=== PATIENT | male | born 1995 | race Caucasian/White ===

== ENCOUNTER 2021-03-02 06:04 | Day surgery (SDC) | payer OTHER ==
[~2021-03-02] VITALS: Ht 167.6 cm; Wt 72.5 kg
[2021-03-02] MEDS ORDERED: ceFAZolin SOD 2 GM in IV 1 EA IV ONE (07:00)
[2021-03-02] MEDS ORDERED: LR 1,000 ML IV ONE (07:00)
[2021-03-02] MEDS ORDERED: fentaNYL 100 MCG/2 ML INJECTION (J3010) As Ordered ONE (07:20)
[2021-03-02] MEDS ORDERED: propofoL 200 MG/20 ML VIAL As Ordered ONE ×2 (07:20→08:12)
[2021-03-02] MEDS ORDERED: dexameTHASONE 4 MG/ML 1ML VIAL (J1100 PER 1MG) As Ordered ONE (07:20)
[2021-03-02] MEDS ORDERED: LIDOCAINE 2% 100MG/5ML SDV (FOR ANES.) As Ordered ONE (07:20)
[2021-03-02] MEDS ORDERED: MIDAZOLAM INJ 2MG/2ML VIAL (J2250 PER 1MG) As Ordered ONE (07:20)
[2021-03-02] MEDS ORDERED: LIDOCAINE 2% JELLY 5ML TUBE As Ordered ONE (07:33)
[2021-03-02] MEDS ORDERED: LIDOCAINE 1% SDV 30ML VIAL As Ordered ONE (08:05)
[2021-03-02] MEDS ORDERED: BACITRACIN OINTMENT 30GM TUBE As Ordered ONE (08:05)
[2021-03-02] MEDS ORDERED: BUPIVACAINE HCL 0.25% 30ML VIAL As Ordered ONE (08:05)
[2021-03-02] MEDS ORDERED: ACETAMINOPHEN 1000MG 100ML IV BTL (OFIRMEV) (J0131 PER 10MG) As Ordered ONE (08:06)
[2021-03-02] MEDS ORDERED: HYDROmorphone HCL 2 MG/ML 1ML VIAL (J1170) As Ordered ONE (08:09)
[2021-03-02] MEDS ORDERED: LACRILUBE (AKWA TEARS) OPHTH OINT 3.5 GM As Ordered ONE (08:52)
[2021-03-02] MEDS ORDERED: ONDANSETRON 4MG/2ML VIAL As Ordered ONE (08:55)
[2021-03-02] MEDS ORDERED: OXYC1TAB23 PO (09:14)
--- NOTE | 2021-03-02 09:23 | ROOPDOC ---
[facility] Report Of Operation Report of Operation DATE OF PROCEDURE: 03/02/21 PREOPERATIVE DIAGNOSIS: Phimosis. POSTOPERATIVE DIAGNOSIS: Phimosis. PROCEDURE: Circumcision. SURGEON: Casi Vanegas MD ASSOCIATE RELATIONS SPECIALIST: None. ANESTHESIA: General. OPERATIVE INDICATIONS: This is a 25-year-old male with phimosis who was brought to the operating room today for treatment. DESCRIPTION OF PROCEDURE: The patient was brought to the operating room and general anesthesia was induced. Prophylactic antibiotics were infused. He has then placed in the supine position and prepped and draped in the usual sterile fashion. At this point, circumcising incisions were made at the level of the coronal sulcus with the foreskin retracted over the glans and then also with foreskin retracted down off the glans. All the foreskin in between the two incisions was then removed using electrocautery. Once the foreskin was removed, any areas of bleeding were controlled with electrocautery. When satisfied with hemostasis, the skin of the penile shaft was then re-approximated to the glans with interrupted 3-0 chromic sutures. Once that was done, dressings were applied including a Mason and Coban and then this was marked the conclusion of the procedure. The patient was then awakened from anesthesia and transferred to the recovery room in stable condition. Estimated blood loss: 20 ml. Complications: None. Specimens: Foreskin. PLAN: The patient will keep his dressings on and remove them in two days. He will follow up in urology clinic in 2 to 3 weeks for a postoperative visit. CASI VANEGAS MD Mar 02, 2021 09:23
[2021-03-02] MEDS ORDERED: MEPERIDINE INJ 25 MG/ML VIAL (J2175) IV PRN (09:25)
[2021-03-02] MEDS ORDERED: fentaNYL 100 MCG/2 ML INJECTION (J3010) IV PRN (09:25)
[2021-03-02] MEDS ORDERED: ONDANSETRON 4MG/2ML VIAL IV PRN (09:25)
[2021-03-02] MEDS ORDERED: METOCLOPRAMIDE INJ 10MG/2ML VIAL (J2765 PER 1) IV PRN (09:25)
[2021-03-02] MEDS ORDERED: LR 1,000 ML IV SCH (09:25)
[2021-03-02] MEDS ORDERED: PERCOCET 5MG/325MG TAB PO PRN (09:30)
[2021-03-02] MEDS: oxyCODONE 5MG TAB PO PRN ×2 (09:32→09:58)
[2021-03-02 10:35] VITALS: BP 122/78
== END 2021-03-02 10:55 | disposition home or self-care (01) ==
LOC: M SDC 06:04
PROVIDERS: ATTEND Urology
DX: N47.1 Phimosis (principal)
CPT/HCPCS: 54161; 88304; J0131; J0690; J1100; J1170; J2250; J2405; J2765; J3010

== ENCOUNTER 2021-03-24 02:53 | Day surgery (SDC) | payer OTHER ==
[~2021-03-24] VITALS: Ht 167.6 cm; Wt 74.0 kg
[2021-03-24] VITALS (7 sets, daily range): BP systolic 99–120; BP diastolic 45–69
[~2021-03-24 02:53] MED LIST: OXYC1TAB23 PO
[2021-03-24] MEDS ORDERED: NS 1,000 ML IV ONE (03:45)
[2021-03-24 04:20] LABS: BASO % 0.2 % (0.0-1.0); EOS # 0.1 10^3/uL (0.0-0.5); EOS % 0.5 % (0.0-3.0); HEMATOCRIT 46.3 % (42.0-52.0); LYMPH # 0.5 10^3/uL (1.5-5.0); LYMPH % 4.6 % (24.0-44.0); MEAN CORPUSCULAR HEMOGLOBIN 29.6 pg (27.0-33.0); MEAN CORPUSCULAR HGB CONC 34.6 g/dl (32.0-36.5); MEAN CORPUSCULAR VOLUME 85.7 fl (80.0-96.0); MONO # 0.9 10^3/uL (0.0-0.8); MONO % 7.9 % (2.0-8.0); NEUTROPHILS # 10.1 10^3/uL (1.5-8.5); NEUTROPHILS % 86.5 % (36.0-66.0); PLATELET COUNT, AUTOMATED 264 10^3/uL (150-450); WHITE BLOOD COUNT 11.6 10^3/uL (4.0-10.0)
[2021-03-24 04:52] LABS: ALBUMIN 4.1 GM/DL (3.2-5.2); BILIRUBIN,DIRECT 0.1 MG/DL (0.0-0.2); BILIRUBIN,TOTAL 0.5 MG/DL (0.2-1.0); TOTAL PROTEIN 7.5 GM/DL (6.4-8.2)
[2021-03-24] MEDS ORDERED: ISOVUE-370 76% 100ML VIAL As Ordered ONE (05:03)
--- NOTE | 2021-03-24 06:11 | REPVR ---
PROCEDURE INFORMATION: Exam: CT Abdomen and Pelvis with Contrast Exam date and time: 03/24/21 (5:12am) Age: 25 years old Clinical indication: RLQ pain TECHNIQUE: Imaging protocol: Computed tomography of the abdomen and pelvis with contrast. Radiation optimization: All CT scans at this facility use at least one of these dose optimization techniques: automated exposure control; mA and/or kV adjustment per patient size (includes targeted exams where dose is matched to clinical indication); or iterative reconstruction. Contrast material: Iso Contrast volume: 100 ml Contrast route: IV COMPARISON: No relevant prior studies available FINDINGS: Liver: Normal. No solid mass. Gallbladder and bile ducts: Normal. No calcified stones. No ductal dilatation. Pancreas: Normal. No ductal dilatation. Spleen: Normal. No splenomegaly. Adrenal glands: Normal. No mass. Kidneys and ureters: Normal. No hydronephrosis. Stomach and bowel: Distended stomach, filled with fluid, food debris and air. No bowel obstruction. Appendix: Thickened, dilated (8-9 mm diameter), inflamed appendix. Mild adjacent RLQ inflammation. No abscess. No bowel obstruction. Intraperitoneal space: Unremarkable. No free air. No significant fluid collection. Vasculature: Unremarkable. No abdominal aortic aneurysm. Lymph nodes: Unremarkable. No enlarged lymph nodes Urinary bladder: Unremarkable as visualized. Reproductive: Unremarkable as visualized. Bones/joints: Unremarkable. No acute fracture. Soft tissues: Unremarkable. IMPRESSION: Acute appendicitis. Mild adjacent RLQ inflammation. No abscess. No bowel obstruction. No free air. Electronically signed by: Laurie Banuelos On 03/24/2021 06:10:24 AM
[2021-03-24] MEDS ORDERED: PIPERACILLIN/TAZOBACTAM SOD 3.375 GM in D5W MINI-BAG PLUS 50 ML IV ONE (06:30)
[2021-03-24 07:21] LABS: RSV AMPLIFICATION NEGATIVE (NEGATIVE)
[2021-03-24] MEDS ORDERED: ACETAMINOPHEN TAB 650MG DOSE (2X325MG) PO PRN (10:25)
[2021-03-24] MEDS ORDERED: MORPHINE 2 MG/ML 1ML VIAL (J2270) IV PRN (10:25)
[2021-03-24] MEDS ORDERED: LR 1,000 ML IV SCH ×2 (11:00→13:35)
[2021-03-24] MEDS ORDERED: BUPIVACAINE HCL 0.25% 30ML VIAL As Ordered ONE (12:03)
[2021-03-24] MEDS ORDERED: LIDOCAINE 1% SDV 30ML VIAL As Ordered ONE (12:03)
[2021-03-24] MEDS ORDERED: ONDANSETRON 4MG/2ML VIAL As Ordered ONE (12:12)
[2021-03-24] MEDS ORDERED: SUGAMMADEX SODIUM 500 MG/5 ML VIAL (BRIDION) As Ordered ONE (12:12)
[2021-03-24] MEDS ORDERED: dexameTHASONE 4 MG/ML 1ML VIAL (J1100 PER 1MG) As Ordered ONE (12:12)
[2021-03-24] MEDS ORDERED: ROCURONIUM BROMIDE 50 MG/5 ML VIAL As Ordered ONE (12:12)
[2021-03-24] MEDS ORDERED: MIDAZOLAM INJ 2MG/2ML VIAL (J2250 PER 1MG) As Ordered ONE (12:12)
[2021-03-24] MEDS ORDERED: propofoL 200 MG/20 ML VIAL As Ordered ONE (12:12)
[2021-03-24] MEDS ORDERED: LIDOCAINE 2% 100MG/5ML SDV (FOR ANES.) As Ordered ONE (12:12)
[2021-03-24] MEDS ORDERED: fentaNYL 100 MCG/2 ML INJECTION (J3010) As Ordered ONE ×2 (12:12→12:35)
[2021-03-24] MEDS ORDERED: ACETAMINOPHEN 1000MG 100ML IV BTL (OFIRMEV) (J0131 PER 10MG) As Ordered ONE (12:12)
[2021-03-24] MEDS ORDERED: KETOROLAC 60MG 2ML VIAL As Ordered ONE (12:12)
[2021-03-24] MEDS ORDERED: ZOSYN 3.375GM VIAL (J2543) As Ordered ONE (12:42)
[2021-03-24] MEDS: PIPERACILLIN/TAZOBACTAM SOD 3.375 GM in D5W MINI-BAG PLUS 50 ML IV SCH ×2 (12:45→17:26)
[2021-03-24] MEDS ORDERED: METOCLOPRAMIDE INJ 10MG/2ML VIAL (J2765 PER 1) IV PRN (13:35)
[2021-03-24] MEDS ORDERED: ONDANSETRON 4MG/2ML VIAL IV PRN (13:35)
[2021-03-24] MEDS: fentaNYL 100 MCG/2 ML INJECTION (J3010) IV PRN ×2 (13:47→13:55)
[2021-03-24] MEDS: KETOROLAC 30 MG/ML 1ML VIAL IV PRN (16:10)
[2021-03-24] MEDS: PERCOCET 5MG/325MG TAB PO PRN (17:27)
[2021-03-25] MEDS: PIPERACILLIN/TAZOBACTAM SOD 3.375 GM in D5W MINI-BAG PLUS 50 ML IV SCH ×3 (00:05→11:33)
[2021-03-25] MEDS: PERCOCET 5MG/325MG TAB PO PRN (00:11)
[2021-03-25 02:00] VITALS: BP 118/59
[2021-03-25 06:00] VITALS: BP 116/57
[2021-03-25 06:21] LABS: BASO % 0.2 % (0.0-1.0); EOS % 0.1 % (0.0-3.0); HEMATOCRIT 43.6 % (42.0-52.0); HEMOGLOBIN 14.2 g/dl (13.5-17.5); LYMPH # 0.8 10^3/uL (1.5-5.0); LYMPH % 7.3 % (24.0-44.0); MEAN CORPUSCULAR HEMOGLOBIN 28.6 pg (27.0-33.0); MEAN CORPUSCULAR HGB CONC 32.6 g/dl (32.0-36.5); MEAN CORPUSCULAR VOLUME 87.7 fl (80.0-96.0); MONO # 0.8 10^3/uL (0.0-0.8); MONO % 7.3 % (2.0-8.0); NEUTROPHILS # 9.3 10^3/uL (1.5-8.5); NEUTROPHILS % 84.6 % (36.0-66.0); PLATELET COUNT, AUTOMATED 287 10^3/uL (150-450); RED BLOOD COUNT 4.97 10^6/uL (4.30-6.10)
[2021-03-25 06:51] LABS: BLOOD UREA NITROGEN 12 MG/DL (7-18); CALCIUM LEVEL 9.3 MG/DL (8.5-10.1); CARBON DIOXIDE LEVEL 27 MEQ/L (21-32); CHLORIDE LEVEL 107 MEQ/L (98-107); CREATININE FOR GFR 0.89 MG/DL (0.70-1.30); GLOMERULAR FILTRATION RATE > 60.0 (>60); GLUCOSE, FASTING 102 MG/DL (70-100); SODIUM LEVEL 141 MEQ/L (136-145)
[2021-03-25 10:00] VITALS: BP 112/53
[2021-03-25] MEDS: KETOROLAC 30 MG/ML 1ML VIAL IV PRN (13:13)
[2021-03-25 14:00] VITALS: BP 110/65
--- NOTE | 2021-04-11 05:27 | ROOPDOC ---
[facility] Report Of Operation Report of Operation DATE OF PROCEDURE: 03/24/21 PREPROCEDURE DIAGNOSES: Acute Appendicitis. POSTPROCEDURE DIAGNOSES: Acute Appendicitis. PROCEDURE: Laparoscopic Appendectomy. SURGEON: Sundeep Campuzano MD COMMERCIAL TITLE EXAMINER: ANESTHESIA: General Endotracheal Anesthesia. ESTIMATED BLOOD LOSS: Approximately 10 mL. COMPLICATIONS: none. REMARKS: healthy 25 M complaining of one day history of abdoinal pain. PROCEDURE NOTE: thickened, acutely inflamed appendix, no perforation, fluid collection, abscess. DESCRIPTION OF PROCEDURE: Patient has been given a dose of Zosyn perioperatively.Patient was brought to the operating room, placed supine on the table. Sequential compression device placed for DVT prophylaxis. General endotracheal anesthesia started. The abdomen prepped and draped in usual sterile fashion. After a surgical timeout, we began our surgery Entry into the abdomen done through an incision above the umbilicus. Veress needle inserted on a controlled fashion. Intra-abdominal placement confirmed with saline drop technique. CO2 insufflation started to a pressure of 15 mmHg. Using the same incision a 12 mm port was placed under direct vision of laparoscope. Insertion site was inspected for injury and none was found. He was placed on a Trendelenburg position the right side tilted to about 30 to allow for better visualization of the appendix. 2 working ports were placed at the suprapubic area and left lower quadrant area under direct vision. Operative findings: The appendix is noted inflamed, thickened throughout its course, mild venous congestion. No perforation The appendix was located, the adhered bowels and mesentery was widely dissected away from the appendix freeing up the appendix from the inflammatory adhesions using Maryland instrument and suction irrigation. The Surrounding bowels retracted away from the appendix. This was grasped to pull the base of the appendix into view. The mesoappendix was divided using Harmonic scalpel down to the base. A Vicryl Endoloop was placed to ligate the appendix at its base then divided with a Harmonic Scalpel the stump cauterized. Stump appears healthy. Appendix was then delivered into an Endo Catch bag. After re-insufflation the surgical site was inspected for hemostasis, the visualized fluid collections irrigated and suctioned off until clear return. Surrounding areas of the abdomen and inspected for fluid collections or signs of injury. A 10 flat SHAWN drain was left in place close to the abdomen initial stump for monitoring and for drainage of fluid irrigation. The abdomen was deflated. All ports removed. The umbilical fascial defect repaired with 0 Vicryl in a mattress fashion. All skin incisions closed with 4-0 Monocryl in a subcuticular fashion. Steri-Strips and gauze dressing used for wound coverage. Patient was promptly awake and extubated and brought to recovery room stable. All counts of sponges and instruments verified to be correct. SUNDEEP CAMPUZANO MD April 11, 2021 05:27
== END 2021-03-25 17:30 | disposition home or self-care (01) ==
LOC: M ED 02:53 → ENRESERV 09:00 → M SDC 10:39 → M MSPAV 14:20 → M SDC 03-25 17:30
PROVIDERS: ATTEND Surgery
DX: K35.30 Acute appendicitis with localized peritonitis, without perforation or gangrene (principal); R11.10 Vomiting, unspecified; N47.1 Phimosis
CPT/HCPCS: 36415; 44970; 74177; 80047; 80048; 80076; 83690; 85025; 87040; 87631; 88304; 93041; 96361; 96365; 96366; 96375; 96376; 99285; J0131; J1100; J1885; J2250; J2405; J2543; J3010; Q9967